=== PATIENT | male | born 1970 | race Caucasian/White ===

== ENCOUNTER 2017-04-24 12:49 | Emergency (ER) | payer MEDICAID ==
[2017-04-24] MEDS ORDERED: NS 1,000 ML IV ONE (12:56)
[2017-04-24] MEDS ORDERED: KETOROLAC 15 MG/1 ML SDV IVP/IM ONE (12:56)
[2017-04-24] MEDS ORDERED: DEXAMETHASONE 4 MG/ML VIAL IVP ONE (12:56)
[2017-04-24] MEDS ORDERED: METOCLOPRAMIDE 10 MG/2 ML VIAL IVP ONE (12:56)
--- NOTE | 2017-04-24 12:59 | EDPHY ---
H & P Time Seen by Provider: 04/24/17 12:51 HPI/ROS: CHIEF COMPLAINT: Worst headache of life HISTORY OF PRESENT ILLNESS: Patient is a 47-year-old man with a history of migraines who [place] He complains that he woke up this morning with the worst headache of his life. He states started initially with vomiting and then developed a headache. He has not had a fever. No diarrhea. Denies chest pain or shortness of breath. He did not have any vision changes. He has not taken any medications he was given fentanyl 160 mcg by EMS with minimal improvement. No seizures. No her brain surgery or aneurysms. No fevers, no neck pain or stiffness. no focal weakness or deficits or dizziness. REVIEW OF SYSTEMS: Constitutional: denies: chills, fever, recent illness, recent injury EENTM: denies: blurred vision, double vision, nose congestion Respiratory: denies: cough, shortness of breath Cardiac: denies: chest pain, irregular heart rate, lightheadedness, palpitations Gastrointestinal/Abdominal: denies: abdominal pain, diarrhea, nausea, vomiting, blood streaked stools Genitourinary: denies: dysuria, frequency, hematuria, pain Musculoskeletal: denies: joint pain, muscle pain Skin: denies: lesions, rash, jaundice, bruising Neurological: See HPI denies: numbness, paresthesia, tingling, dizziness, weakness Hematologic/Lymphatic: denies: blood clots, easy bleeding, easy bruising Immunologic/allergic: denies: HIV/AIDS, transplant EXAM: GENERAL: Well-appearing, asking for pain medication HEAD: Atraumatic, normocephalic. EYES: Pupils equal round and reactive to light, extraocular movements intact, sclera anicteric, conjunctiva are normal. ENT: TMs normal, nares patent, oropharynx clear without exudates. Moist mucous membranes. NECK: Normal range of motion, supple without lymphadenopathy or JVD. LUNGS: Breath sounds clear to auscultation bilaterally and equal. No wheezes rales or rhonchi. HEART: Regular rate and rhythm without murmurs, rubs or gallops. ABDOMEN: Soft, nontender, normoactive bowel sounds. No guarding, no rebound. No masses appreciated. BACK: No CVA tenderness, no spinal tenderness, step-offs or deformities EXTREMITIES: Normal range of motion, no pitting or edema. No clubbing or cyanosis. NEUROLOGICAL: Cranial nerves II through XII grossly intact. Normal speech, normal gait. 5/5 strength, normal movement in all extremities, normal sensation PSYCH: Normal mood, normal affect. SKIN: Warm, dry, normal turgor, no visible rashes or lesions. Source: Patient, EMS Exam Limitations: No limitations - Medical/Surgical History Hx Asthma: No Hx Chronic Respiratory Disease: No Hx Diabetes: No Hx Cardiac Disease: No Hx Renal Disease: No Hx Cirrhosis: No Hx Alcoholism: No Hx HIV/AIDS: No Hx Splenectomy or Spleen Trauma: No Other PMH: SPINAL STINOSIS - Family History Significant Family History: No pertinent family hx - Social History Smoking Status: Current every day smoker Alcohol Use: Sober Drug Use: None Constitutional: Initial Vital Signs Temperature (C) 36.6 C 04/24/17 12:59 Heart Rate 55 L 04/24/17 12:59 Respiratory Rate 18 04/24/17 12:59 Blood Pressure 167/92 H 04/24/17 12:59 O2 Sat (%) 98 04/24/17 12:59 O2 Delivery Mode Room Air Allergies/Adverse Reactions: celecoxib [From Celebrex] Allergy (Verified 07/31/15 01:02) Home Medications: Medication Instructions Recorded HYDROmorphone HCL [Hydromorphone 16 mg PO BID 07/31/15 ER] Metaxalone [Skelaxin 800 mg (RX)] 800 mg PO TID 07/31/15 Naproxen Sodium [Naproxen Sodium 500 mg PO BID 07/31/15 ER] oxyCODONE HCL [Oxycodone HCl ER] 20 mg PO QID 07/31/15 Medical Decision Making - Diagnostics Imaging Results: Imaging Impressions Head CT 04/24/17 12:57 Impression: 1. No significant intracranial abnormality seen. 2. Small air-fluid level left maxillary sinus. If symptoms worsen, additional imaging may be necessary. Findings discussed with Duy Bailey M.D. at 14:10 hour, 04/24/2017. Head CTA 04/24/17 12:57 Impression: Relatively normal CT angiogram of the [place], as detailed above. Note: All calculations were performed using NASCET criteria Findings discussed with Duy Bailey at 14:10 hour, 04/24/2017. Imaging: Discussed imaging studies w/ [employer] sales and management Radiologist ED Course/Re-evaluation: 1:30 p.m. the patient states he is feeling somewhat better but still has a severe headache. I will treat with Haldol. He has not yet gone to CT scan. 2:[address] results which are reassuring. I offered to do a LP although he has not had any fever cold symptoms. We discussed the risks and benefits. The patient declines. States that he is feeling bleed better after the Haldol. We will continue to observe. 3:00 p.m. the patient continues to feel well. He has called his friend for a ride. Will prepare for discharge. Discussed indications for returning. Differential Diagnosis: Partial list of the Differential diagnosis considered include but were not limited to; migraine, tension headache, hemorrhage, and and although unlikely based on the history and physical exam, I also considered infection, abscess. I discussed these differential diagnoses and the plan with the patient as well as the usual and expected course. The patient understands that the diagnosis is provisional and that in medicine we are not always correct and that further workup is often warranted. Usual and customary warnings were given. All of the patient's questions were answered. The patient was instructed to return to the emergency department should the symptoms at all worsen or return, otherwise to followup with the physician as we discussed. - Data Points Laboratory Results: Laboratory Results 04/24/17 12:54 04/24/17 12:54 04/24/17 04/24/17 04/24/17 12:54 12:54 12:54 WBC 15.07 10^3/uL H 10^3/uL (3.80-9.50) RBC 5.89 10^6/uL 10^6/uL (4.40-6.38) Hgb 19.1 g/dL H g/dL (13.7-17.5) Hct 53.1 % H % (40.0-51.0) MCV 90.2 fL fL (81.5-99.8) MCH 32.4 pg pg (27.9-34.1) MCHC 36.0 g/dL g/dL (32.4-36.7) RDW 12.5 % % (11.5-15.2) Plt Count 343 10^3/uL 10^3/uL (150-400) MPV 9.4 fL fL (8.7-11.7) Neut % (Auto) 78.9 % H % (39.3-74.2) Lymph % (Auto) 14.5 % L % (15.0-45.0) [place] % (Auto) 5.5 % % (4.5-13.0) Eos % (Auto) 0.1 % L % (0.6-7.6) Baso % (Auto) 0.5 % % (0.3-1.7) Nucleat RBC Rel Count 0.0 % % (0.0-0.2) Absolute Neuts (auto) 11.89 10^3/uL H 10^3/uL (1.70-6.50) Absolute Lymphs (auto) 2.19 10^3/uL 10^3/uL (1.00-3.00) Absolute Monos (auto) 0.83 10^3/uL H 10^3/uL (0.30-0.80) Absolute Eos (auto) 0.02 10^3/uL L 10^3/uL (0.03-0.40) Absolute Basos (auto) 0.07 10^3/uL 10^3/uL (0.02-0.10) Absolute Nucleated RBC 0.00 10^3/uL 10^3/uL (0-0.01) Immature Gran % 0.5 % % (0.0-1.1) Immature Gran # 0.07 10^3/uL 10^3/uL (0.00-0.10) PT 12.3 SEC SEC (12.0-15.0) INR 0.89 (0.83-1.16) Sodium 145 mEq/L mEq/L (135-145) Potassium 4.7 mEq/L mEq/L (3.5-5.2) Chloride 102 mEq/L mEq/L (97-110) Carbon Dioxide 21 mEq/l L mEq/l (22-31) Anion Gap 22 mEq/L H mEq/L (8-16) BUN 15 mg/dL mg/dL (7-23) Creatinine 0.8 mg/dL mg/dL (0.7-1.3) Estimated GFR > 60 Glucose 143 mg/dL H mg/dL (70-100) Calcium 11.2 mg/dL H mg/dL (8.5-10.4) Phosphorus 1.2 mg/dL L mg/dL (2.5-4.5) Medications Given: Discontinued Medications Dexamethasone (Decadron Injection) 8 mg IVP EDNOW ONE Stop: 04/24/17 12:57 Last Admin: 04/24/17 13:06 Dose: 8 mg Diphenhydramine HCl (Benadryl Injection) 25 mg IVP EDNOW ONE Stop: 04/24/17 12:57 Last Admin: 04/24/17 13:05 Dose: 25 mg Haloperidol Lactate (Haldol Injection) 2.5 mg IVP EDNOW ONE Stop: 04/24/17 13:33 Last Admin: 04/24/17 13:38 Dose: 2.5 mg Sodium Chloride (Ns) 1,000 mls @ 3,000 mls/hr IV EDNOW ONE Stop: 04/24/17 13:15 Last Admin: 04/24/17 13:06 Dose: 1,000 mls Ketorolac Tromethamine (Toradol) 15 mg IVP/IM EDNOW ONE Stop: 04/24/17 12:57 Last Admin: 04/24/17 13:05 Dose: 15 mg Metoclopramide HCl (Reglan Injection) 10 mg IVP EDNOW ONE Stop: 04/24/17 12:57 Last Admin: 04/24/17 13:06 Dose: 10 mg Departure - Departure Disposition: Home, Routine, Self-Care Clinical Impression: Migraine headache without aura Qualifiers: Status migrainosus presence: without status migrainosus Intractability: not intractable Qualified Code(s): G43.009 - Migraine without aura, not intractable , without status migrainosus Condition: Good Instructions: Migraine Headache (ED) Referrals: Bela Prado MD [Medical Doctor] - As per Instructions
[2017-04-24 13:08] LABS: PLATELET COUNT 343 10^3/uL (150-400)
[2017-04-24 13:11] LABS: INR 0.89 (0.83-1.16); PROTIME(PATIENT) 12.3 SEC (12.0-15.0)
[2017-04-24] MEDS ORDERED: HALOPERIDOL LACT 5 MG/ML INJ IVP ONE (13:32)
[2017-04-24] MEDS ORDERED: IOPAMIDOL (ISOVUE 370) 100 ML BTL IV ONE (13:41)
[2017-04-24 14:12] VITALS: TEMP 98.1
[2017-04-24 15:15] VITALS: BP 124/79; PULSE 86; RESP 14; O2SAT 95
== END 2017-04-24 15:36 | disposition home or self-care (01) ==
LOC: EDUNIT#
DX: G43.009 Migraine without aura, not intractable, without status migrainosus (principal); F17.200 Nicotine dependence, unspecified, uncomplicated; R11.10 Vomiting, unspecified
CPT/HCPCS: 96374; J1100; J1200; J1630; J1885; J2765; Q9967